=== PATIENT | male | born 2000 | race Caucasian/White ===

== ENCOUNTER 2024-10-20 14:04 | Emergency (ER) | payer OTHER, SELFPAY ==
--- NOTE | ~2024-10-20 | XR_ITS ---
CLINICAL HISTORY: fracture 3 view right ankle Comparison: None Findings: No acute fractures. Ankle mortise intact. No ankle effusion. No radiopaque foreign body. IMPRESSION: 1. No acute findings. This document has been electronically signed by: Marce Mustafa MD on 10/20/2024 15:49:09
--- NOTE | ~2024-10-20 | US_ITS ---
CLINICAL HISTORY: right calf achilles pain. rupture? Ultrasound right Achilles limited Comparison: None Findings: Achilles tendon is intact. No fluid collections. Impression: Intact Achilles tendon. This document has been electronically signed by: Marce Mustafa MD on 10/20/2024 15:50:21
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
--- NOTE | ~2024-10-20 | XR_ITS ---
CLINICAL HISTORY: fracutre? 3 view right foot Comparison: None Findings: No fractures or dislocations. Hallux valgus. No ankle effusion. No radiopaque foreign body. IMPRESSION: 1. No acute osseous injury. This document has been electronically signed by: Marce Mustafa MD on 10/20/2024 15:52:04
[2024-10-20 14:29] VITALS: BP 118/88; PULSE 88; RESP 18; TEMP 37.1; O2SAT 98; BMI 24.4
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
[2024-10-20 16:34] VITALS: BP 139/77; PULSE 87; RESP 16; TEMP 36.9; O2SAT 97
[2024-10-20 17:46] VITALS: BP 132/76; PULSE 89; RESP 16; TEMP 36.9; O2SAT 97
[2024-10-20 18:04] VITALS: BP 132/76; PULSE 89; RESP 16; TEMP 36.9; O2SAT 97
== END 2024-10-20 18:06 | disposition home or self-care (01) ==
PROVIDERS: Emergency Provider Emergency Medicine
DX: S93.401A Sprain of unspecified ligament of right ankle, initial encounter (principal); X58.XXXA Exposure to other specified factors, initial encounter; Y93.89 Activity, other specified; Y92.9 Unspecified place or not applicable; Y99.9 Unspecified external cause status
CPT/HCPCS: 73590; 73600; 73620; 76882; 99283; 99284

== ENCOUNTER → 2024-10-20 14:33 | Outpatient (BNV) | payer SELFPAY | PROVIDERS: Visit Provider Radiology Diagnostic Radiology | DX: M25.571 Pain in right ankle and joints of right foot (principal); S82.891A Other fracture of right lower leg, initial encounter for closed fracture; M76.61 Achilles tendinitis, right leg; S89.91XA Unspecified injury of right lower leg, initial encounter | CPT/HCPCS: 73590; 73600; 73620; 76882 ==